=== PATIENT | female | born 1995 | race African-American/Black ===

== ENCOUNTER 2017-02-28 05:07 | Emergency (ER) | payer SELFPAY ==
[~2017-02-28] VITALS: Ht 165.1 cm; Wt 73.9 kg
[2017-02-28 05:39] LABS: ALBUMIN 3.7 g/dL (3.4-5.0); ALKALINE PHOSPHATASE 97 U/L (46-116); ALT/SGPT 16 U/L (14-59); AMYLASE 59 U/L (25-115); AST/SGOT 10 U/L (15-37); BILIRUBIN TOTAL 0.58 mg/dL (0.20-1.00); CALCIUM 8.9 mg/dL (8.5-10.1); CARBON DIOXIDE 26.5 mmol/L (21-32); CHLORIDE SERUM 105 mmol/L (98-107); GFR1 > 60 mL/min; GLUCOSE SERUM 132 mg/dL (74-106); LIPASE 147 IU/L (73-393); SODIUM SERUM 141 mmol/L (136-145); TOTAL PROTEIN, SERUM 7.7 g/dL (6.4-8.2)
[2017-02-28 05:42] LABS: POTASSIUM SERUM 2.7 mmol/L (3.5-5.1)
[2017-02-28 05:47] LABS: BASOPHIL % 0.7 % (0-2); RED CELL DISTRIBUTION WIDTH 13.8 % (11.5-14.5)
[2017-02-28 05:50] LABS: PLATELET COUNT 421 x10^3mcL (130-400)
[2017-02-28 13:27] VITALS: BP 106/65
== END 2017-02-28 13:27 | disposition home or self-care (01) ==
LOC: ED 05:07
PROVIDERS: Emergency Medicine
DX: T40.7X1A Poisoning by cannabis (derivatives), accidental (unintentional), initial encounter (principal); E87.6 Hypokalemia; R11.10 Vomiting, unspecified; Y92.89 Other specified places as the place of occurrence of the external cause
CPT/HCPCS: 83880; C9113; G0480; J2405; J2765; J3480; J7030; J7040